=== PATIENT | female | born 1955 | race Caucasian/White ===

== ENCOUNTER 2018-09-01 10:00 | Outpatient (RCR) | payer MEDICARE, OTHER | END 2018-09-02 | LOC: PT 10:00 | PROVIDERS: ATTEND Specialist | DX: M25.551 Pain in right hip (principal) | CPT/HCPCS: 97110 ×2; 97162; G8978; G8979 ==

== ENCOUNTER 2018-10-01 09:00 | Outpatient (RCR) | payer MEDICARE, OTHER | END 2018-10-02 | LOC: PT 09:00 | PROVIDERS: ATTEND Specialist | DX: M25.551 Pain in right hip (principal); M25.651 Stiffness of right hip, not elsewhere classified; M62.81 Muscle weakness (generalized); R26.2 Difficulty in walking, not elsewhere classified | CPT/HCPCS: 97110 ×11; 97139; 97530; G8978; G8979 ==

== ENCOUNTER 2019-03-15 07:45 | Inpatient (IN) | payer MEDICARE, OTHER ==
--- NOTE | 2019-03-10 10:54 | Diagnostic Imaging Report ---
EXAMINATION: CHEST 2 VIEWS INDICATION: Pre-op. COMPARISON: None FINDINGS: TUBES and LINES: None. LUNGS: Lungs are mildly hyperinflated. Patchy bibasilar opacities likely represent atelectasis. There is no evidence of lobar pneumonia or pulmonary edema. PLEURA: No pleural effusion or pneumothorax. HEART AND MEDIASTINUM: The cardiomediastinal silhouette is unremarkable. BONES AND SOFT TISSUES: No acute osseous abnormality. There is dextroconvex curvature of the thoracic spine. UPPER ABDOMEN: No free air under the diaphragm. IMPRESSION: No acute radiographic abnormality. Mildly hyperinflated lungs. Signed by: Dr. Phylicia Enamorado MD on 03/10/2019 10:51 AM
[~2019-03-15] VITALS: Ht 154.7 cm; Wt 99.3 kg
[~2019-03-15 07:45] MED LIST: ALENDRONATE SOD70 MG PO; BUPIVACAINE 7.5MG/ML /DEXTROSE 82.5MG/ML 2 ML AMP INJ ONE; INDOMETHACIN75 MG PO; PRAVASTATIN SOD80 MG PO; ROPIVACAINE 246.25 MG, EPINEPHRINE HCL 1:1000 1ML 0.5 MG, CLONIDINE HCL 0.08 MG, KETORO... INJ ONE; TYLENOL PO; ULTRAM 50MG50 MG PO
--- OUTSIDE RECORDS SUMMARY | 2019-03-15 07:50 | XMS REPORT ---
Author Author [facility] Address Unknown Phone Unavailable Care Team Providers Care Supervisor Treating And Pumping Name Role Phone SHALINI HOWARD Unavailable Unavailable Problems This patient has no known problems. Allergies, Adverse Reactions, Alerts This patient has no known allergies or adverse reactions. Medications This patient has no known medications. Results Test Description Test Time Test Comments Text Results Atomic Results Result Comments CHEST 2 VIEWS 2019-03-10 10:46:00 [facility] [address] [id number] Patient Name: RAMON BRASWELL MR #: [id number] : 1955 Age/Sex: 63/F Req #: [id number] Adm Physician: Ordered by: SHALINI HOWARD MD Report #: [id number] Location: OR Room/Bed: Procedure: [id number] DX/CHEST 2 VIEWS Exam Date: 03/10/19 Exam Time: 1030 REPORT STATUS: Signed EXAMINATION: CHEST 2 VIEWS INDICATION: Pre-op. COMPARISON: None FINDINGS: TUBES and LINES: None. LUNGS: Lungs are mildly hyperinflated. Patchy bibasilar opacities likely represent atelectasis. There is no evidence of lobar pneumonia or pulmonary edema. PLEURA: No pleural effusion or pneumothorax. HEART AND MEDIASTINUM: The cardiomediastinal silhouette is unremarkable. BONES AND SOFT TISSUES: No acute osseous abnormality. There is dextroconvex curvature of the thoracic spine. UPPER ABDOMEN: No free air under the diaphragm. IMPRESSION: No acute radiographic abnormality. Mildly hyperinflated lungs. Signed by: Dr. Rj Lynn MD on 03/10/2019 10:51 AM Dictated By: RJ LYNN MD 1051 Transcribed By: KEVIN on 03/10/19 1051 COPY TO: SHALINI HOWARD MD
[2019-03-15] MEDS ORDERED: TRANEXAMIC ACID 1,000 MG/10 ML ML ONE (08:09)
[2019-03-15] MEDS ORDERED: VANCOMYCIN HCL 1,000 MG ONE (08:09)
[2019-03-15] MEDS ORDERED: BACITRACIN 50,000 UNIT VIAL ONE (08:09)
[2019-03-15] MEDS ORDERED: SODIUM CHLORIDE 0.9% 500ML 500 ML ONE (08:09)
[2019-03-15] MEDS ORDERED: GABAPENTIN 300 MG CAP ONE (08:16)
[2019-03-15] MEDS ORDERED: CELECOXIB 200 MG CAP ONE ×2 (08:16→08:34)
[2019-03-15] MEDS ORDERED: CEFAZOLIN SOD 2 GM/D5W 50ML 50 ML IV ONE (08:17)
[2019-03-15] MEDS ORDERED: DEXAMETHASONE SOD PHOS 10 MG/1 ML VIAL ONE (08:17)
[2019-03-15] MEDS ORDERED: DIPHENHYDRAMINE HCL INJ 50 MG/ML VIAL IM/IV PRN (10:30)
[2019-03-15] MEDS ORDERED: PROMETHAZINE HCL (IM) 25 MG/ML VIAL INJ PRN (10:30)
[2019-03-15] MEDS ORDERED: DOCUSATE SODIUM 100 MG CAP PO PRN (10:30)
[2019-03-15] MEDS ORDERED: HYDROCODONE/APAP 5MG-325MG TAB PO PRN (10:30)
[2019-03-15] MEDS ORDERED: ONDANSETRON HCL INJ 2MG/ML 2ML 2 MG/ML VIAL IV PRN (10:30)
[2019-03-15] MEDS ORDERED: ZOLPIDEM TARTRATE 5 MG TAB PO PRN (10:30)
[2019-03-15] MEDS ORDERED: ACETAMINOPHEN 650 MG SUPP PR PRN (10:30)
--- NOTE | 2019-03-15 11:24 | NUR ---
RECEIVED PATIENT FROM RECOVERY. PATIENT A/O X3, EVEN RESPIRATIONS UNLABORED ON RA. BOWEL SOUNDS ACTIVE, SKIN INTACT, NO EDEMA. RIGHT HIP DRESSING CLEAN DRY AND INTACT. WOUND VAC IN PLACE. BILATERAL FOOT PUMPS, COMPRESSION STOCKINGS, AND HIP PILLOW IN PLACE. RIGHT ARM 20 GAUGE IV WITH IVF @ 100 CC/HR. SON AT BEDSIDE. BED LOW, WHEELS LOCKED, SIDE RAILS X2, CALL LIGHT IN REACH. EDUCATED PATIENT TO CALL FOR ASSISTANCE. VITAL SIGNS STABLE. WILL CONTINUE TO MONITOR PATIENT.
--- NOTE | 2019-03-15 12:00 | Diagnostic Imaging Report ---
Exam: Pelvis single frontal view History: Postoperative study Comparison: None. Findings: See impression Impression: Status post total right hip replacement with intact acetabular and femoral components. No periprosthetic displaced fracture. Expected subcutaneous gas in keeping with recent surgery. Signed by: Dr. Jose Elkins M.D. on 03/15/2019 11:57 AM
[2019-03-15] MEDS: ACETAMINOPHEN 1000 MG/100 ML IV SCH ×2 (12:25→17:20)
[2019-03-15] MEDS: SODIUM CHLORIDE 0.9% 1000ML 1,000 ML IV SCH ×2 (12:25→20:24)
[2019-03-15 12:28] VITALS: BP 120/61
[2019-03-15 12:31] VITALS: BP 120/61
[2019-03-15 12:59] VITALS: BP 120/61
[2019-03-15] MEDS ORDERED: FENTANYL CITRATE/PF 100MCG/2 ML INJ ONE (14:16)
[2019-03-15] MEDS ORDERED: KETAMINE HCL INJ 50 MG/ML 10 ML VIAL ONE (14:16)
[2019-03-15] MEDS ORDERED: MIDAZOLAM HCL 2 MG/2 ML VIAL ONE (14:16)
[2019-03-15] MEDS: CEFAZOLIN SOD 1 GM/NS 50ML 50 ML IV SCH ×2 (14:56→21:13)
--- NOTE | 2019-03-15 14:59 | NUR ---
PATIENT DME AND HOME HEALTH COMPANIES PRE-ARRANGED BY DR. HOWARD'S OFFICE. PATIENT WITH HOME HEALTH AND DME CONTACT INFORMATION. PATIENT AWARE TO CALL CM IF ANY PROBLEMS OCCUR WITHIN 3 DAYS POST- DISCHARGE. HOME HEALTH EXPLAINED IN DEPTH WITH SERVICES PROVIDED. PATIENT VERBALLY UNDERSTOOD. THE FOLLOWING HOME HEALTH AND DME COMPANY VERIFIED PATIENT IS ON SERVICE WITH THEM: [facility] (P)[phone] (F) [phone] CM SPOKE TO JAC FROM [employer] [facility] [employer]. PATIENT IS CONFIRMED TO BE SEEN DAY AFTER DISCHARGE 03/17. [employer] (P) [phone] (F) [phone] CM SPOKE TO KIMBERLEE FROM [employer]. PATIENT CONFIRMED TO HAVE RECEIVED EQUIPMENT. PATIENT TO BRING WALKER TO BEDSIDE FOR DISCHARGE.
--- NOTE | 2019-03-15 15:16 | NUR ---
PATIENT HAS VOIDED SINCE SURGERY.
[2019-03-15] MEDS: HYDROCODONE/APAP 7.5MG-325MG 1 EA TAB PO PRN ×2 (15:59→20:30)
[2019-03-15 16:21] VITALS: BP 129/68
[2019-03-15] MEDS: ASPIRIN 325 MG TAB PO SCH (16:31)
[2019-03-15] MEDS: CELECOXIB 100 MG CAP PO SCH (16:31)
[2019-03-15] MEDS ORDERED: PROPOFOL IV EMULSION 10 MG/ML 20 ML VIAL ONE (17:55)
[2019-03-15] MEDS ORDERED: LIDOCAINE HCL 2% LOCAL INJ 5 ML SDV VIAL INJ ONE (17:55)
--- NOTE | 2019-03-15 18:03 | Operative Report ---
DATE OF PROCEDURE: 03/15/2019 SURGEON: Jose Dsouza MD AIRPLANE PILOT: Sudhakar Neri PA-C. PREOPERATIVE DIAGNOSIS: Osteoarthritis right hip. POSTOPERATIVE DIAGNOSIS: Osteoarthritis right hip. PROCEDURE: Right total hip arthroplasty * added complexity secondary to BMI over 40. INDICATIONS: The patient is a 63-year-old lady with advanced osteoarthritis of her right hip. She has failed conservative management and wishes to proceed with a right total hip replacement. The risks and benefits have been discussed. The added potential for perioperative complications due to her body mass index have been explicitly explained. She states she understands and accepts this. She wishes to proceed. PROCEDURE IN DETAIL: The patient was brought to the operating room and given a spinal anesthetic. She was then positioned in the left lateral decubitus position. Her BMI was just over 40, but it appeared a significant portion of her body mass was distributed over her hips. Added time, personnel and difficulty was encountered throughout the case from positioning to wound closure. Ultimately, the hip was positioned with appropriate padding. Her right hip was prepped and draped in a sterile manner. A preoperative time-out was performed. A posterior approach was made to the right hip. A somewhat more extensile incision was necessary. Even with the deep Charnley self-retaining retractor, it was difficult to retract the wound and get down through the abundant subcutaneous adipose tissue. The posterior capsule was difficult to expose. Hemostasis was obtained with electrocautery. Care was taken to avoid injury to the sciatic nerve. The short external rotators and posterior capsule were released. Further hemostasis was obtained with electrocautery. The hip was dislocated and an oscillating saw was used to resect the femoral head. Acetabular retractors were carefully placed. Again, added timing and difficulty were encountered due to the altered surgical field. Labral remnants were excised. The [employer] reamers were then used to ream the socket up to 53 mm. This accomplished bleeding hemispherical cancellous bone. A 54 mm outer diameter OsseoTi shell was then impacted into place. Fixation was good. Fixation was augmented with a single 25 mm screw placed in the ilium. A highly cross-linked polyethylene liner with a 36 mm inner diameter was then seated into place. Care was taken to make sure that there was no evidence of soft tissue interposition. The hip had been thoroughly irrigated multiple times with a shower tip pulsatile lavage and a diluted mixture of polymyxin and vancomycin spray. A portion of a 100 mL premixed pericapsular CINDY injection was placed around the capsule. The socket was packed with a moist soaked lap sponge and attention was directed towards the proximal femur. Again, some challenges were encountered getting good visualization of the proximal femur. A box cutting osteotome and taper pin reamer were used to establish entry to the femoral canal. The taper lock broaches were impacted. A size 6 stem had good canal fill and rotational stability. Trial reductions were performed. A -3 mm head was felt to provide appropriate soft tissue balancing, confucianist of length and stability. The trial implants were removed. The hip was further irrigated with pulsatile lavage. The implants were seated and a -3 neck and ceramic head were seated onto the stem after it had been cleaned and dried. A final reduction was performed. Again, the hip was put through an arc of motion and noted to have good stability. What was left to the posterior capsule was carefully repaired, 500 mg of vancomycin powder were placed into the wound. The iliotibial band and gluteal fascia were closed with interrupted #2 Ethibond. The skin was closed with subcuticular Vicryl and campos. Because of the abundant adipose, a sterile wound VAC was applied over the incision. The patient was returned to the supine position. She was extubated and transported to the recovery room in stable condition. Blood loss was approximately 100 mL. All needle and sponge counts were correct. Jose Dsouza MD DR/ERICA /[id number]
--- NOTE | 2019-03-15 19:40 | NUR ---
Assessment done.right hip dressing site is dry.wound vac is in place.pct and i assisted to void.voided.pt isback to bed safely.keep monitor the pt.
[2019-03-15 20:00] VITALS: BP 105/62
[2019-03-15 21:00] VITALS: BP 105/62
[2019-03-16] VITALS: BP 103/58
[2019-03-16] MEDS: ACETAMINOPHEN 1000 MG/100 ML IV SCH ×2 (00:39→05:00)
[2019-03-16] MEDS: KETOROLAC TROMETHAMINE 30 MG/ML VIAL IV PRN ×2 (01:11→08:39)
--- NOTE | 2019-03-16 02:43 | NUR ---
Pt is comfortably resting in the bed.abduction pillow is in place.stable condition.
--- NOTE | 2019-03-16 03:15 | Consultation ---
DATE OF CONSULTATION: HISTORY OF PRESENT ILLNESS: The patient is a 63-year-old female, comes in status post right hip replacement. Consult is for medical management status post surgery. PAST MEDICAL HISTORY: History of low back pain, history of hyperlipidemia, history of osteoporosis, history of chronic pain. MEDICATIONS: At home includes alendronate 70 mg, indomethacin 75 mg, pravastatin 80 mg, tramadol for pain control. PAST SURGICAL HISTORY: History of in the past. ALLERGIES: NO DRUG ALLERGIES NOTED. REVIEW OF SYSTEMS: Negative for chest pain. No shortness of breath. No nausea, vomiting, or diarrhea. No constipation. No rectal bleeding. No hematochezia. No hematemesis. The patient's pain is controlled. The patient is again status post surgery. PHYSICAL EXAMINATION: VITAL SIGNS: Temperature is 97.2, pulse 93, respirations of 18, blood pressure is 129/68. HEENT: Normocephalic, atraumatic. Pupils are reactive to light and accommodation. CVS: S1 and S2 normal. Regular rate and rhythm. ABDOMEN: Nontender, nondistended. PELVIC: Right hip status post arthroplasty. EXTREMITIES: No clubbing, no cyanosis, and intact . LABORATORY DATA: Pending for tomorrow. ASSESSMENT: Status post right hip arthroplasty. The patient is currently stable. Continue with current postoperative plans. Further recommendation per clinical course. We will continue to monitor the patient's lytes, her blood pressure, and also her H and H. the patient is stable. Continue to monitor. MD ZBIGNIEW De La Rosa/SATURNINOL /[id number]
[2019-03-16 04:00] VITALS: BP 108/64
[2019-03-16] MEDS: CEFAZOLIN SOD 1 GM/NS 50ML 50 ML IV SCH (05:33)
[2019-03-16] MEDS: SODIUM CHLORIDE 0.9% 1000ML 1,000 ML IV SCH (05:35)
[2019-03-16 05:59] LABS: HEMATOCRIT 35.2 % (34.2-44.1); HEMOGLOBIN 10.9 g/dL (12.0-16.0)
[2019-03-16] MEDS: HYDROCODONE/APAP 7.5MG-325MG 1 EA TAB PO PRN (06:15)
--- NOTE | 2019-03-16 06:50 | NUR ---
Report given to the oncoming rn.waking rounds done.stable condition.
--- NOTE | 2019-03-16 07:34 | NUR ---
RECEIVED PATIENT AWAKE RESTING IN BED NO SIGNS OF DISTRESS. BED LOW, WHEELS LOCKED, SIDE RAILS X2. CALL LIGHT IN REACH WILL CONTINUE TO MONITOR PATIENT.
[2019-03-16] MEDS: ASPIRIN 325 MG TAB PO SCH (08:31)
[2019-03-16] MEDS: CELECOXIB 100 MG CAP PO SCH (08:31)
[2019-03-16 08:40] VITALS: BP 117/67
[2019-03-16 08:50] VITALS: BP 117/67
--- NOTE | 2019-03-16 09:01 | Progress Note ---
DATE: SUBJECTIVE: The patient is admitted to the hospital for avascular necrosis of the hip, status post hip surgery. The patient at this time has no complaint. Pain has been controlled by Toradol. Did have some paresthesias in the right lower extremity, but has resolved completely. The patient is currently asymptomatic. OBJECTIVE: VITAL SIGNS: Temperature is 97.7, pulse of 95, respirations of 18, blood pressure is 108/64, pulse oximetry of 92%. HEENT: Normocephalic, atraumatic. Pupils are reactive. CVS: S1, S2. Regular rate and rhythm. ABDOMEN: Nontender, nondistended. Bowel sounds positive. EXTREMITIES: Right hip wound clean, dry. Lower extremity pulses 2+. LABORATORY DATA: Hemoglobin is 10.9, hematocrit 35.2. ASSESSMENT: 1. Right hip arthroplasty. 2. Avascular necrosis of the right hip. 3. Postoperative care. Continue with antibiotics and fluids. We will continue monitoring her lytes and H and H. Further recommendation per clinical course. MD ZBIGNIEW De La Rosa/MODL /[id number]
--- NOTE | 2019-03-16 09:52 | NUR ---
PATIENT AMBULATED 180 FT WITH PT. SITTING IN CHAIR AT THIS TIME. NO SIGNS OF DISTRESS. WILL CONTINUE TO MONITOR PATIENT.
--- NOTE | 2019-03-16 10:14 | NUR ---
PATIENT A/O X3, EVEN RESPIRATIONS ON RA. BOWEL SOUNDS ACTIVE, TOLERATING REGULAR DIET. RIGHT HIP DRESSING DRY/INTACT. FOOT PUMPS AND SHERON HOSE IN PLACE BILATERALLY. WOUND VAC IN PLACE WITH RIGHT HIP DRESSING. RIGHT FA 20 GAUGE IV SL. VITAL SIGNS STABLE, NO SIGNS OF DISTRESS. WILL CONTINUE TO MONITOR PATIENT.
[2019-03-16] MEDS ORDERED: ACETAMINOPHEN 1000 MG/100 ML IV PRN (10:30)
--- NOTE | 2019-03-16 10:31 | NUR ---
REMOVED RIGHT FA IV. IV RED/LEAKING. CATHETER TIP INTACT ON REMOVAL AND PRESSURE DRESSING APPLIED.
[2019-03-16 11:44] VITALS: BP 119/63
[2019-03-16] MEDS ORDERED: ASPIRIN325 MG PO (13:21)
[2019-03-16] MEDS ORDERED: NORCO 7.5-3251 EACH PO (13:39)
--- NOTE | 2019-03-16 14:16 | NUR ---
PATIENT DISCHARGED FROM FACILITY. PATIENT GATHERED ALL PERSONAL BELONGINGS, DISCHARGE INSTRUCTIONS, PRESCRIPTIONS, AND FOLLOW UP INFORMATION. LEFT UNIT IN WHEEL CHAIR AND WENT HOME VIA PRIVATE AUTO. NO SIGNS OF DISTRESS WHEN LEAVING FACILITY.
== END 2019-03-16 14:17 | disposition home health service (06) | DRG 470 ==
LOC: OR 07:45 → PACU V 10:26 → MED/SURG 11:25
PROVIDERS: ADMIT Specialist; ATTEND Specialist
PROC: 0SR9049 Replacement of Right Hip Joint with Ceramic on Polyethylene Synthetic Substitute, Cemented, Open Approach (ICD-10-PCS; principal; 2019-03-15 09:30)
DX: M16.11 Unilateral primary osteoarthritis, right hip (principal); Z68.42 Body mass index [BMI] 45.0-49.9, adult; M87.88 Other osteonecrosis, other site; E66.01 Morbid (severe) obesity due to excess calories; G47.30 Sleep apnea, unspecified; Z72.0 Tobacco use; Z88.8 Allergy status to other drugs, medicaments and biological substances; E78.5 Hyperlipidemia, unspecified; M81.0 Age-related osteoporosis without current pathological fracture; G89.29 Other chronic pain; Z01.811 Encounter for preprocedural respiratory examination
CPT/HCPCS: 36415; 71046; 72170; 85014; 85018; 86850; 86900; 86920; 97139; J0171; J0690; J1100; J1885; J2001; J2250; J2795; J3370; J7030; J7040

== ENCOUNTER → 2023-02-20 | Day surgery (SDC) | payer MEDICARE, OTHER ==
[2023-02-13 10:57] LABS: BASOPHILS # (AUTO) 0.1 (0.0-0.1); BASOPHILS % 0.6 % (0.0-1.0); EOSINOPHILS # (AUTO) 0.3 (0.0-0.4); EOSINOPHILS % 2.8 % (0.0-6.0); HEMATOCRIT 46.3 % (34.2-44.1); HEMOGLOBIN 14.1 g/dL (12.0-16.0); LYMPHOCYTES # (AUTO) 2.5 (1.0-3.2); LYMPHOCYTES % 21.5 % (18.0-39.1); MEAN CORPUSCULAR HEMOGLOBIN 29.4 pg (28-32); MEAN CORPUSCULAR HGB CONC 30.5 g/dL (31-35); MEAN CORPUSCULAR VOLUME 96.7 fL (81-99); MONOCYTES % 8.9 % (4.4-11.3); NEUTROPHILS # (AUTO) 7.7 (2.1-6.9); NEUTROPHILS % 65.9 % (38.7-80.0); PLATELET COUNT 231 x10e3/uL (140-360); RED BLOOD COUNT 4.79 x10e6/uL (3.6-5.1); RED CELL DISTRIBUTION WIDTH 14.6 % (11.7-14.4)
[~2023-02-20] MED LIST changes: +ACETAMINOPHEN-1 EAC4 PO; +ASPIRIN325 MG PO; +ASPIRIN81 MG PO; -BUPIVACAINE 7.5MG/ML /DEXTROSE 82.5MG/ML 2 ML AMP INJ ONE; +CALTRATE 600 W1 EACH; +CENTRUM SILVER1 EAC3; +FENTANYL CITRATE/PF 100MCG/2 ML INJ ONE; +LACTATED RINGER'S 1,000 ML ONE; +MIDAZOLAM HCL 2 MG/2 ML VIAL ONE; +NORCO 7.5-3251 EACH PO; +POVIDONE IODINE 0.05% 0.05 % ML PO ONE; +PREDNISONE20 MG PO; +PROPOFOL IV EMULSION 10 MG/ML 20 ML VIAL ONE; -ROPIVACAINE 246.25 MG, EPINEPHRINE HCL 1:1000 1ML 0.5 MG, CLONIDINE HCL 0.08 MG, KETORO... INJ ONE
[2023-02-20 10:05] VITALS: BP 129/78
== END | disposition home or self-care (01) ==
LOC: OR 07:34
PROVIDERS: ATTEND Internal Medicine Gastroenterology
DX: Z12.11 Encounter for screening for malignant neoplasm of colon (principal); D12.4 Benign neoplasm of descending colon; K62.1 Rectal polyp; K63.89 Other specified diseases of intestine; K62.89 Other specified diseases of anus and rectum; K57.30 Diverticulosis of large intestine without perforation or abscess without bleeding; K64.8 Other hemorrhoids; Z01.810 Encounter for preprocedural cardiovascular examination; Z01.812 Encounter for preprocedural laboratory examination; Z79.82 Long term (current) use of aspirin; Z79.899 Other long term (current) drug therapy
CPT/HCPCS: 36415; 45385; 85025; 88305; 93005; J2250; J2704; J3010; J7121; 45378